=== PATIENT | female | born 1945 | race Caucasian/White ===

== ENCOUNTER → 2017-12-28 | Outpatient (CLI) | payer OTHER, MEDICARE ==
[~2017-12-28] MED LIST: ELEMENTAL CALC600 MG PO; MULTIPLE VITAM1 EAC3 PO; SYNTHROID112 MCG PO; VERAMYST10 GM NS; VITAMIN D1000 UNI1 PO; VITAMIN E400 UNIT PO
== END ==
LOC: MRI 10:55
DX: M47.26 Other spondylosis with radiculopathy, lumbar region (principal); M51.16 Intervertebral disc disorders with radiculopathy, lumbar region; Z88.5 Allergy status to narcotic agent